=== PATIENT | female | born 1965 | race African-American/Black ===

== ENCOUNTER 2025-05-10 11:11 | Outpatient (REF) | payer OTHER, SELFPAY ==
[2025-05-10 13:02] LABS: MANUAL DIFF FLAG NO
[2025-05-10 14:17] LABS: Hematocrit 42.7 % (37.0-47.0); Hemoglobin 14.4 g/dl (12.0-16.0); Imm Gran Abs Auto 0.01 X10*3/uL (0.00-0.03); Imm Gran Pct Auto 0.2 % (0.0-0.4); Lymphocytes Absolute Auto 2.4 X10*3/uL (1.2-4.9); Mean Corpuscular HGB Conc 33.7 g/dl (31.0-35.0); Mean Corpuscular Hemoglobin 29.3 pg (27.0-33.0); Mean Corpuscular Volume 86.8 fL (80.0-98.0); NRBC Abs Auto 0.000 X10*3/uL (0.0-0.012); NRBC Pct Auto 0.0 /100WBC (0.0-0.2); Platelet Count 371 X10*3/uL (160-400); Red Blood Count 4.92 X10*6/uL (4.20-5.50); White Blood Count 5.0 X10*3/uL (4.8-10.8)
[2025-05-10 14:42] LABS: Appearance Urine Clear; Glucose Urine UA Negative (Negative); PH 5.5 (5.0-9.0); Specific Gravity - Urine 1.020 (1.005-1.025); UMIC TRIGGER UA YES
[2025-05-10 14:50] LABS: Erythrocyte Sedimentation Rate 14 MM/HR (0-20)
[2025-05-10 14:56] LABS: Alanine Aminotransferase 25 U/L (0-31); Albumin Level 4.7 g/dL (3.5-5.0); Alkaline Phosphatase 56 U/L (39-117); Anion Gap 12 (12-20); Aspartate Amino Transferase 25 U/L (5-31); Blood Urea Nitrogen 15 mg/dL (9-16); Calcium 9.7 mg/dL (8.4-10.2); Carbon Dioxide 29 mmol/L (22-29); Chloride 104 mmol/L (96-108); Estimated Glomerular Filt Rate > 60; Iron 92 mcg/dL (30-160); Magnesium 1.8 mg/dL (1.6-2.6); Percent Iron Saturation 29 % (15-50); Potassium 4.2 mmol/L (3.3-5.1); Sodium 141 mmol/L (135-145); Total Iron Binding Capacity 314 mcg/dL (228-428); Total Protein 8.2 g/dL (6.5-8.0); Unsaturated Iron Binding 222 ug/dL
[2025-05-10 15:14] LABS: Microalbum/Creatinine Ratio Ur 7.8 ug/mg cr (<30)
[2025-05-10 15:18] LABS: Vitamin B12 730 pg/mL (200-900)
== END 2025-05-10 11:12 | disposition home or self-care (01) ==
LOC: HO.LAB 11:11
PROVIDERS: PCP Internal Medicine; Visit Provider Internal Medicine
DX: I10 Essential (primary) hypertension (principal); D64.9 Anemia, unspecified; E11.69 Type 2 diabetes mellitus with other specified complication; E66.9 Obesity, unspecified; M86.9 Osteomyelitis, unspecified; R39.9 Unspecified symptoms and signs involving the genitourinary system; N39.0 Urinary tract infection, site not specified; N32.81 Overactive bladder; M48.061 Spinal stenosis, lumbar region without neurogenic claudication; Z68.31 Body mass index [BMI] 31.0-31.9, adult
CPT/HCPCS: 36415; 80053; 81001; 82043; 82570; 82607; 83036; 83540; 83735; 84443; 85025; 85652; 86140; 87040; 87086; 87088; 87186

== ENCOUNTER 2025-05-10 11:11 | Outpatient (AMB) | payer OTHER, SELFPAY ==
--- NOTE | 2025-05-10 11:12 | A.OFFPC_ITS ---
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 Accompanied by: Self / Same As Patient Allergies No Known Allergies Allergy (Verified 05/10/25 11:15) Medication List - Last Reconciled 05/10/25 by Lucero Shaw MD albuterol sulfate 90 mcg/actuation (Ventolin HFA) 2 puffs inhalation Q4H PRN blood sugar diagnostic (FreeStyle Lite Strips) As directed blood-glucose meter (FreeStyle Lite Meter kit) As directed cholecalciferol (vitamin D3) 25 mcg PO DAILY docusate sodium 100 mg PO BID PRN estradiol 0.01%(0.1mg/gram) vaginal lidocaine 5% 1 patch topical magnesium oxide 400 mg PO DAILY mirabegron ER 50 mg PO DAILY ondansetron HCl 4 mg PO Q8H PRN sitagliptin phosphate (Januvia) 100 mg PO DAILY tizanidine 2 - 4 mg PO TID PRN Tobacco use date assessed: 05/10/25 Dental Screening Dental Screen Date: 05/10/25 Did you have a dental visit in the last 12 months?: Yes Did you have a dental problem in the last 6 months where you did not have access to dental care?: No Was dental information given to patient?: Patient has dentist HPI HPI Comments History of Present Illness Details The patient is a 59-year-old female presenting to [facility]. Urinary Tract Infection and Overactive Bladder: Painful urination present. Overactive bladder diagnosed. Awaiting further evaluation of bladder lining, pending appt with [facility]. Lumbar Spinal Stenosis and Osteoarthritis: Back pain at L4-L5 with numbness and tingling. Recent MRI confirms stenosis. Interference with sleep noted. Past inflammation affects spine. Also had hospitalization for osteomyelitis several months prior. Type 2 Diabetes Mellitus and High Blood Pressure: Monitored blood glucose levels remain moderately high 100s. Januvia used for management. HTN- managed off medications Anemia- due for repeat iron studies, endorses fatigue Social History: - Diet includes tuna sandwiches, vegetab les, and moderation in bread intake. - Sleeps disturbed by pain. Review of Systems - General: Reports chills, low-grade fev er at times. - Musculoskeletal: Reports back pain, nu mbness, and tingling in legs. - Neurological: Reports numbness and tin gling in extremities. Also tingling in finger tips of right hand - Genitourinary: Reports painful urinati on, overactive bladder symptoms. Physical Exam - Vitals- Blood pressure 130/84 mmHg. - Cardiovascular- Normal heart rhythm wi th soft murmur. - Respiratory- Lungs clear, no wheezing. - Musculoskeletal- Tenderness along lumb ar paraspinals - Extremities- trace edema in both legs. Assessment and Plan 1. Urinary Tract Infection and Overactiv e Bladder - Cephalexin initiated. Bladder evaluati on scheduled. Monitor urine culture. 2. Lumbar Spinal Stenosis and Osteoarthr itis - Gabapentin prescribed. Monitor nerve s ymptoms. Assess spine inflammation. 3. Type 2 Diabetes Mellitus and High Blo od Pressure - Continue Januvia. Monitor glucose. Adj ust treatments as necessary. Follow up in 2 months Discussion Notes I discussed the presence of a urinary tract infection and provided a prescription for Cephalexin, highlighting the necessity of addressing urinary s ymptoms and ensuring appropriate antibiotic treatment following the pending results. I emphasized the importance of following up with urology to evaluate the bladder lining. For lumbar spinal stenosis and associated pain, I introduced a low-dose Gabapentin as a better option for nerve pain management compared to stronger sedatives, explaining the potential benefits and modest side effect profile when used at low doses. The conversation included recommendations to continue Januvia for diabetes while monitoring blood glucose closely, along with a significant focus on diet modification to aid in controlling elevated blood sugar levels. We addressed the challenges of managing persistent back pain and the need for a second opinion consultation regarding history of osteomyelitis. Patient Instructions - Take Cephalexin as prescribed for denny n days. - Schedule and attend the urology appoin tme for bladder examination. - Start Gabapentin 100 mg at night for b ack pain. Increase as needed after consulting. - Monitor blood sugar levels; report sig nificant changes. - Follow a balanced diet with fewer carb ohydrates. - Contact us if symptoms worsen or new s ymptoms develop. [facility] Medical History (Updated 05/10/25 @ 16:39 by Lucero Shaw MD) Urinary symptom or sign Anemia Osteomyelitis Diabetes mellitus type 2 in obese Primary hypertension Surgical History (Updated 05/08/25 @ 17:21 by Tanisha Dockery) History of hysterectomy (~2003) History of colonoscopy (~12/31/22) Social History Housing: House Patient Tobacco Use Status: Never used Tobacco e-Cigarette/Vaping Use: Never Used Current occupational status: unemployed Questionnaire AUDIT C Alcohol Use Questionnaire (AUDIT-C) 1. How often do you have a drink containing alcohol?: Never 3. How often do you have six or more drinks on one occasion?: Never Total Score: 0 Physical exam (Primary Care) Vital Signs: Last Vital Signs Temp 96.6 F L 05/10/25 11:14 Pulse 76 05/10/25 11:14 Resp 16 05/10/25 11:14 BP 130/84 05/10/25 11:14 Pulse Ox 98 05/10/25 11:14 Oxygen Delivery Method Room Air 05/10/25 11:14 BMI result Body Mass Index 31.4 Tobacco/Smoking Status: Tobacco use Status Tobacco use date assessed 05/10/25 05/10/25 11:22 Patient Tobacco Use Status Never used Tobacco 05/10/25 11:22 e-Cigarette/Vaping Use Never Used 05/10/25 11:22 Coding Level of Care Code Est Pt Level 4 (91654) Complex EM visit Add On G2211 Diagnoses Anemia, unspecified type D64.9 Anemia type: unspecified type Urinary symptom or sign R39.9 Primary hypertension I10 Diabetes mellitus type 2 in obese E11.69; E66.9 Osteomyelitis of other site, unspecified type M86.9 Osteomyelitis type: unspecified type Osteomyelitis location: other site Assessment & Plan Assessment & Plan (1) Anemia: Code(s): D64.9 - Anemia, unspecified Category: Medical Qualifiers: Anemia type: unspecified type Qualified Code(s): D64.9 - Anemia, unspec ified (2) Urinary symptom or sign: Code(s): R39.9 - Unspecified symptoms and signs involving the genitourinary system Category: Medical (3) Primary hypertension: Code(s): I10 - Essential (primary) hypertension Category: Medical (4) Diabetes mellitus type 2 in obese: Code(s): E11.69 - Type 2 diabetes mellitus with other specified complication; E66.9 - Obesity, unspecified Category: Medical (5) Osteomyelitis: Code(s): M86.9 - Osteomyelitis, unspecified Category: Medical Qualifiers: Osteomyelitis type: unspecified type Osteomyelitis location: other site Qualified Code(s): M86.9 - Osteomyelitis, unspecified Plan - Initiate Cephalexin for UTI. - Gabapentin for nerve pain. - Monitor urinary and spinal symptoms. - Continue Januvia for diabetes management. - Dietary changes for lower blood sugar. Orders: Orders Complete Blood Count Auto Diff Today D64.9 - Anemia, unspecified, E11.69 - Type 2 diabetes mellitus with other specified complication, E66.9 - Obesity, unspec ified, I10 - Essential (primary) hypertension, M86.9 - Osteomyelitis, unspecified Hemoglobin A1c Today D64.9 - Anemia, unspecified, E11.69 - Type 2 diabetes mellitus with other specified complication, E66.9 - Obesity, unspecified, I10 - Essential (primary) hypertension, M86.9 - Osteomyelitis, unspecified C Reactive Protein Today D64.9 - Anemia, unspecified, E11.69 - Type 2 diabetes mellitus with other specified complication, E66.9 - Obesity, unspecified, I10 - Essential (primary) hypertension, M86.9 - Osteomyelitis, unspecified Erythrocyte Sedimentation Rate Today D64.9 - Anemia, unspecified, E11.69 - Type 2 diabetes mellitus with other specified complication, E66.9 - Obesity, unspecified, I10 - Essential (primary) hypertension, M86.9 - Osteomyelitis, unspecified Magnesium Today D64.9 - Anemia, unspecified, I10 - Essential (primary) hypertension, M86.9 - Osteomyelitis, unspecified Comprehensive Met. Panel Today D64.9 - Anemia, unspecified, E11.69 - Type 2 diabetes mellitus with other specified complication, E66.9 - Obesity, unspecified, I10 - Essential (primary) hypertension, M86.9 - Osteomyelitis, unspecified Microalbumin, Random (w Creat) Today D64.9 - Anemia, unspecified, E11.69 - Type 2 diabetes mellitus with other specified complication, E66.9 - Obesity, unspecified, I10 - Essential (primary) hypertension, M86.9 - Osteomyelitis, unspecified TSH reflex Free T4 Today D64.9 - Anemia, unspecified, E11.69 - Type 2 diabetes mellitus with other specified complication, E66.9 - Obesity, unspecified, I10 - Essential (primary) hypertension, M86.9 - Osteomyelitis, unspecified IRON PROFILE Today D64.9 - Anemia, unspecified, E11.69 - Type 2 diabetes mellitus with other specified complication, E66.9 - Obesity, unspecified, I10 - Essential (primary) hypertension, M86.9 - Osteomyelitis, unspecified Blood Culture X2 Today M86.9 - Osteomyelitis, unspecified UA and rflx microscopic Today R39.9 - Unspecified symptoms and signs involving the genitourinary system Urine Culture Today R39.9 - Unspecified symptoms and signs involving the genitourinary system Vitamin B12 Today D64.9 - Anemia, unspecified, I10 - Essential (primary) hypertension, M86.9 - Osteomyelitis, unspecified Medications: New cephalexin 500 mg PO BID 14 caps 0RF gabapentin 100 mg PO BEDTIME 60 caps 3RF 60 days magnesium oxide 400 mg PO DAILY 30 tabs 1RF
[2025-05-10 11:14] VITALS: BP 130/84; PULSE 76; RESP 16; TEMP 35.9; O2SAT 98; BMI 31.4
== END 2025-05-10 12:08 | disposition home or self-care (01) ==
LOC: HO.HMCHD 11:11
PROVIDERS: PCP Internal Medicine; Visit Provider Internal Medicine
DX: D64.9 Anemia, unspecified (principal); R39.9 Unspecified symptoms and signs involving the genitourinary system; I10 Essential (primary) hypertension; E11.69 Type 2 diabetes mellitus with other specified complication; E66.9 Obesity, unspecified; M86.9 Osteomyelitis, unspecified

== ENCOUNTER 2025-06-10 14:18 | Outpatient (REF) | payer OTHER, SELFPAY ==
[2025-06-10 16:03] LABS: MANUAL DIFF FLAG NO
[2025-06-10 17:07] LABS: Hematocrit 39.1 % (37.0-47.0); Hemoglobin 13.2 g/dl (12.0-16.0); Imm Gran Abs Auto 0.02 X10*3/uL (0.00-0.03); Imm Gran Pct Auto 0.3 % (0.0-0.4); Lymphocytes Absolute Auto 2.3 X10*3/uL (1.2-4.9); Mean Corpuscular HGB Conc 33.8 g/dl (31.0-35.0); Mean Corpuscular Hemoglobin 29.7 pg (27.0-33.0); Mean Corpuscular Volume 88.1 fL (80.0-98.0); NRBC Abs Auto 0.000 X10*3/uL (0.0-0.012); NRBC Pct Auto 0.0 /100WBC (0.0-0.2); Platelet Count 333 X10*3/uL (160-400); Red Blood Count 4.44 X10*6/uL (4.20-5.50); White Blood Count 7.0 X10*3/uL (4.8-10.8)
[2025-06-10 17:09] LABS: INTERNATIONAL NORM RATIO 0.9 (0.9-1.1); Prothrombin Time 11.6 SEC (11.2-13.5)
[2025-06-10 17:12] LABS: Partial Thromboplastin Time 28.8 SEC (26.7-34.1)
[2025-06-10 17:38] LABS: Anion Gap 13 (12-20); Blood Urea Nitrogen 17 mg/dL (9-16); Calcium 9.3 mg/dL (8.4-10.2); Carbon Dioxide 28 mmol/L (22-29); Chloride 104 mmol/L (96-108); Estimated Glomerular Filt Rate > 60; Iron 72 mcg/dL (30-160); Magnesium 1.7 mg/dL (1.6-2.6); Percent Iron Saturation 22 % (15-50); Potassium 3.9 mmol/L (3.3-5.1); Sodium 141 mmol/L (135-145); Total Iron Binding Capacity 326 mcg/dL (228-428); Unsaturated Iron Binding 254 ug/dL
[2025-06-10 18:06] LABS: Troponin-I High Sensitivity < 2.7 ng/L (<3.5-17.0)
[2025-06-10 18:10] LABS: Erythrocyte Sedimentation Rate 19 MM/HR (0-20)
[2025-06-10 18:21] LABS: Ferritin 228 ng/mL (10-250)
== END 2025-06-10 14:19 | disposition home or self-care (01) ==
LOC: HO.LAB 14:18
PROVIDERS: PCP Internal Medicine; Visit Provider Internal Medicine
DX: I10 Essential (primary) hypertension (principal); E11.69 Type 2 diabetes mellitus with other specified complication; D69.9 Hemorrhagic condition, unspecified; M86.9 Osteomyelitis, unspecified; R07.9 Chest pain, unspecified; E66.9 Obesity, unspecified; R39.9 Unspecified symptoms and signs involving the genitourinary system; Z68.32 Body mass index [BMI] 32.0-32.9, adult
CPT/HCPCS: 36415; 80048; 82728; 83540; 83735; 84484; 85025; 85610; 85652; 85730; 86140; 87040; 96127

== ENCOUNTER 2025-06-10 14:18 | Outpatient (AMB) | payer OTHER, SELFPAY ==
--- NOTE | 2025-06-10 14:26 | MHC.PC.OV ---
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 Accompanied by: Daughter Allergies No Known Allergies Allergy (Verified 06/10/25 14:27) Medication List - Last Reconciled 06/10/25 by Lucero Shaw MD albuterol sulfate 90 mcg/actuation (Ventolin HFA) 2 puffs inhalation Q4H PRN blood sugar diagnostic (FreeStyle Lite Strips) As directed blood-glucose meter (FreeStyle Lite Meter kit) As directed cholecalciferol (vitamin D3) 25 mcg PO DAILY docusate sodium 100 mg PO BID PRN estradiol 0.01%(0.1mg/gram) vaginal gabapentin 100 mg PO BEDTIME 60 days glimepiride 1 mg PO BID 90 days lidocaine 5% 1 patch topical PRN magnesium oxide 400 mg PO DAILY mirabegron ER 50 mg PO DAILY ondansetron HCl 4 mg PO Q8H PRN sitagliptin phosphate (Januvia) 100 mg PO DAILY tizanidine 2 - 4 mg PO TID PRN Tobacco use date assessed: 05/10/25 Dental Screening Dental Screen Date: 05/10/25 HPI HPI Comments History of Present Illness Details The patient is a 59 year old female presenting to discuss easy bruising and to discuss recent urology consultation. Suspected bladder carcinoma: The patient was evaluated by urology and was found to have red spots in her bladder. A CT scan showed a very thick bladder wall. A bladder biopsy was scheduled for the of the month, for which she underwent pre-operative blood tests and an EKG. Bleeding disorder: During a pre-operative blood draw, the patient experienced prolonged bleeding from the venipuncture site that required more than 20 minutes of pressure and assistance from another staff member to control. She is not on any blood thinners or supplements known to thin the blood. She has also noted unexplained bruises in early May and an episode of hematuria. Her prior platelet counts have been normal. Chest pain: The patient reports a sensation of heaviness like bricks on top of my chest on the day of her pre-operative EKG last week. She also reveals a past episode of severe, stabbing chest pain in September, during which she self-medicated with a nitroglycerin tablet belonging to a relative which provided relief. She was advised by a home care nurse at the time to call 911 for such symptoms but she did not. Neuropathic pain/Back pain: The patient reports ongoing neuropathic burning pain in back and suprapubic pressure. Also notes numbness in her hands. She is currently taking a low dose of gabapentin (one capsule) and tizanidine, which provides insufficient pain relief. She does not experience drowsiness from the gabapentin. She also takes magnesium oxide nightly. Osteomyelitis: The patient has a history of back pain and osteomyelitis infection from 09/2024. Was seen by [facility] ID. Still reports subjective chills. Her ID doctor is no longer at [facility] so pt would like to transfer care. Anemia: The patient reports a history of severe anemia when she was younger, which required injections. Her current CBC is normal, and she is not anemic. HTN- does not require medications [facility] Medical History (Updated 06/10/25 @ 18:17 by Lucero Shaw MD) Chest pain Bleeds easily UTI (urinary tract infection) Urinary symptom or sign Anemia Osteomyelitis Diabetes mellitus type 2 in obese Primary hypertension Surgical History (Updated 05/08/25 @ 17:21 by Tanisha Dockery) History of hysterectomy (~2003) History of colonoscopy (~12/31/22) Social History Housing: House Patient Tobacco Use Status: Never used Tobacco e-Cigarette/Vaping Use: Never Used Current occupational status: unemployed Questionnaire PHQ-9 Over the last 2 weeks, how often have you been bothered by any of the following problems? 1. Little interest or pleasure in doing things: several days 2. Feeling down, depressed, or hopeless: not at all 3. Trouble falling or staying asleep, or sleeping too much: nearly every day 4. Feeling tired or having little energy: several days 5. Poor appetite or overeating: not at all 6. Feeling bad about yourself - or that you are a failure or have let yourself or your family down: not at all 7. Trouble concentrating on things, such as reading the newspaper or watching television: not at all 8. Moving or speaking so slowly that other people could have noticed. Or the opposite - being so fidgety or restless that you have been moving around a lot more than usual: not at all 9. Thoughts that you would be better off or of hurting yourself in some way: not at all Total score: 5 Depression Screening Interpretation: Positive Depression Screening Done: Yes 74070 - PHQ-9 Billing: Yes Source: Developed by Drs. Gonzalo Butcher, Radha Pickens, Broderick Larios and colleagues, with an educational jasvir from [employer]. AUDIT C Alcohol Use Questionnaire (AUDIT-C) 1. How often do you have a drink containing alcohol?: Never 3. How often do you have six or more drinks on one occasion?: Never Total Score: 0 Review of Systems Narrative Review of Systems - Constitutional: Reports chills two nights ago, night fevers in the past, and dizziness. - Cardiovascular: Reports a sensation of heaviness on the chest described as bricks on top of my chest last week. She also reports a previous episode of severe, stabbing chest pain in September that was relieved by nitroglycerin. Denies palpitations. - Genitourinary: Reports one recent episode of hematuria. Reports urinary urgency and incontinence. Denies dysuria or urinary frequency. - Musculoskeletal: Reports chronic back pain. Reports pain that makes it difficult to bend over. Denies neck pain. - Hematologic/Lymphatic: per hpi - Neurological: Reports numbness and tingling in her hands. Denies drowsiness from her medication. - Psychiatric: Reports feeling anxious and having trouble sleeping. Physical exam (Primary Care) Vital Signs: Last Vital Signs Temp 97.1 F 06/10/25 14:27 Pulse 84 06/10/25 14:27 Resp 16 06/10/25 14:27 BP 120/76 06/10/25 14:27 Pulse Ox 97 06/10/25 14:27 Oxygen Delivery Method Room Air 06/10/25 14:27 BMI result Body Mass Index 32.5 Tobacco/Smoking Status: Tobacco use Status Tobacco use date assessed 05/10/25 06/10/25 14:33 Patient Tobacco Use Status Never used Tobacco 06/10/25 14:33 e-Cigarette/Vaping Use Never Used 06/10/25 14:33 PHQ-9: PHQ-9 Score PHQ-9: Total score 5 06/10/25 14:33 Depression Screening Interpretation: Positive Narrative Physical Exam - Pulmonary: Lungs are clear to auscultation bilaterally. - Cardiovascular: Normal heart sounds with a soft murmur noted on auscultation. - Abdomen: Non-tender to palpation. Normal bowel sounds present. Coding Level of Care Code Est Pt Level 4 (16430) Complex visit Add On G2211 Diagnoses Chest pain, unspecified type R07.9 Chest pain type: unspecified Osteomyelitis of other site, unspecified type M86.9 Osteomyelitis location: other site Osteomyelitis type: unspecified type Primary hypertension I10 Urinary symptom or sign R39.9 Additional Codes PHQ-9 - 48594 - PHQ-9 Billing: Yes ([id number]) Assessment & Plan Assessment & Plan (1) Chest pain: Code(s): R07.9 - Chest pain, unspecified Category: Medical Qualifiers: Chest pain type: unspecified Qualified Code(s): R07.9 - Chest pain, unspecified (2) Osteomyelitis: Code(s): M86.9 - Osteomyelitis, unspecified Category: Medical Qualifiers: Osteomyelitis location: other site Osteomyelitis type: unspecified type Qualified Code(s): M86.9 - Osteomyelitis, unspecified (3) Primary hypertension: Code(s): I10 - Essential (primary) hypertension Category: Medical (4) Urinary symptom or sign: Code(s): R39.9 - Unspecified symptoms and signs involving the genitourinary system Category: Medical Plan Assessment and Plan 1. Chest Pain - The patient reports recent chest pressure and a past episode of severe, stabbing chest pain in September that was relieved by nitroglycerin. - Given her history of diabetes, this is highly concerning for an underlying cardiac issue. - The patient is not cleared for her scheduled bladder biopsy. - - Plan: Will order a stat stress test to evaluate for cardiac ischemia. - The bladder biopsy will be postponed until the cardiac workup is complete. - The patient was strongly advised to call 911 for any future episodes of chest pain. 2. Suspected Bladder Carcinoma - will obtain urology report - A biopsy is planned but will be delayed pending cardiac clearance. - - Plan: Patient to follow up with urology after cardiac evaluation. - The biopsy is postponed. 3. Bleeding Diathesis/Prolonged Bleeding - The patient experienced significant, prolonged bleeding after a routine blood draw, has a history of easy bruising, and watery-appearing blood. - She is not on any anticoagulants. - The etiology is unclear. - - Plan: Will order labs today to investigate a possible bleeding disorder, PT/INR, CBC. - Will also check a magnesium level. - Blood cultures will be added due to her recent report of chills. 4. Chronic Neuropathic Pain - The patient continues to have significant neuropathic pain - - Plan: Titrate gabapentin up to 2 capsules at bedtime this week, with the option to increase to 3 if needed and tolerated. - She can continue tizanidine but take it at dinnertime, not at the same time as gabapentin. - This may also help with her reported anxiety and insomnia. 5. History of Osteomyelitis - Given her ongoing symptoms and the fact her ID specialist is leaving, will refer to ID - - Plan: Will recheck inflammatory markers (ESR, CRP). 6. Follow-up - The patient has a follow-up appointment scheduled for next week - This may be rescheduled pending the results of the diagnostic workup. - - Plan: Maintain current follow-up appointment, but may move it after lab and stress test results are available. Plan - Laboratory tests will be performed today to evaluate for bleeding disorders, including an INR, CBC, - Inflammatory markers, including ESR and CRP, will be checked to assess for ongoing inflammation. - Blood cultures will be drawn due to the patient's recent report of chills. - A magnesium level will be checked. - An order for a stat cardiac stress test will be placed to evaluate her chest pain symptoms. - The patient is not cleared for her upcoming bladder biopsy until the cardiac workup is completed. - Increase gabapentin dose to two capsules at bedtime for one week, may increase to three capsules if needed. - Tizanidine can be taken at dinnertime, but not at the same time as gabapentin. - A referral to Infectious Disease will be initiated to establish care with a new provider, as her previous one has left the practice, and to re-evaluate her history for surgical clearance. Patient Instructions - Go to the lab today to have your blood drawn for the tests we discussed. - Do not proceed with your bladder biopsy scheduled for the . It is not safe for you to have surgery until we check your heart. We will put in an order for a heart stress test for you. - For any chest pain, pressure, heaviness, or stabbing feeling, you must call 911 immediately. Do not try to figure it out on your own. - Do not take any medications, like nitroglycerin, that are not prescribed for you. This can be very dangerous. - Increase your gabapentin to two capsules at bedtime. If your pain does not improve, you may increase to three capsules. - If you take tizanidine, take it at dinnertime, not at the same time as the gabapentin. - Continue to drink sips of water throughout the day, aiming for at least 64 ounces in total. Orders: Orders C Reactive Protein Today D69.9 - Hemorrhagic condition, unspecified, M86.9 - Osteomyelitis, unspecified Prothrombin Time INR Today D69.9 - Hemorrhagic condition, unspecified, M86.9 - Osteomyelitis, unspecified IRON PROFILE Today D69.9 - Hemorrhagic condition, unspecified Ferritin Today D69.9 - Hemorrhagic condition, unspecified NM cardiolite stress test Today R07.9 - Chest pain, unspecified Troponin-I High Sensitivity Today R07.9 - Chest pain, unspecified Blood Culture X2 Today M86.9 - Osteomyelitis, unspecified Erythrocyte Sedimentation Rate Today D69.9 - Hemorrhagic condition, unspecified, M86.9 - Osteomyelitis, unspecified Complete Blood Count Auto Diff Today D69.9 - Hemorrhagic condition, unspecified, M86.9 - Osteomyelitis, unspecified Partial Thromboplastin Time Today D69.9 - Hemorrhagic condition, unspecified, M86.9 - Osteomyelitis, unspecified Magnesium Today E11.69 - Type 2 diabetes mellitus with other specified complication, E66.9 - Obesity, unspecified, I10 - Essential (primary) hypertension Basic Metabolic Panel Today E11.69 - Type 2 diabetes mellitus with other specified complication, E66.9 - Obesity, unspecified, I10 - Essential (primary) hypertension CA stress test Today R07.9 - Chest pain, unspecified Referrals Infectious Disease Referral M86.9 - Osteomyelitis, unspecified
[2025-06-10 14:27] VITALS: BP 120/76; PULSE 84; RESP 16; TEMP 36.2; O2SAT 97; BMI 32.5
--- OUTSIDE RECORDS SUMMARY | 2025-06-10 23:14 | XMS_ITS | Clinical Summary ---
Author Organization [facility] Address [address] [place] [address] Phone Care Team Providers Care Interventional Technologist Name Role Phone Lucero Shaw MD Primary Care Provider [phone] Allergies No known active allergies Social History Tobacco Use Types Packs/Day Years Used Date Smoking Tobacco: Never Smokeless Tobacco: Never Tobacco Cessation:Counseling Given: Not Answered Comments Unknown Sex and Gender Information Value Date Recorded Sex Assigned at Not on file Legal Sex Female 9:03 AM EST Gender Identity Not on file Sexual Orientation Not on file Last Filed Vital Signs Vital Sign Reading Time Taken Comments Blood Pressure 117/84 01/06/2025 12:45 AM EDT Pulse 78 01/06/2025 12:45 AM EDT Temperature 36.9 C (98.5 F) 01/06/2025 12:45 AM EDT Respiratory Rate 17 01/06/2025 12:45 AM EDT Oxygen Saturation 97% 01/06/2025 12:45 AM EDT Inhaled Oxygen Concentration - - Weight 81.2 kg (179 lb) 01/05/2025 4:43 PM EDT Height 160 cm (5' 3 ) 01/05/2025 4:43 PM EDT Body Mass Index 31.71 01/05/2025 4:43 PM EDT Plan of Treatment Health Maintenance Due Date Last Done Comments Breast Cancer Screening 1965 Colorectal Cancer Screening: Colonoscopy 1965 Diabetes: Annual Foot Exam 10/28/1977 Diabetes: Annual Retina Eye Exam 10/28/1977 DTaP,Tdap,and Td Vaccines (1 - Tdap) 10/28/1986 Hepatitis B Vaccines (1 of 3 - 19+ 3-dose series) 10/28/1986 Cervical Cancer Screening: P ap Smear 10/28/1988 Pneumococcal Vaccine: 50+ Ye ars (1 of 1 - PCV) 10/28/2017 Zoster Vaccines (1 of 2) 10/28/2017 Depression Screening 07/04/2024 Cholesterol Screening (Lipid Panel) 01/05/2025 Diabetes: Annual Urine Albumin-Creatinine Ratio (uACR) 01/05/2025 Diabetes: Blood Sugar Contro l Test (HGBA1C) 01/05/2025 HIV Screening 01/05/2025 Hepatitis C Screening 01/05/2025 Social Influencers of Health Screening 01/05/2025 COVID-19 Vaccine (1 - 2024-2 6 season) 2025 Influenza Vaccine (#1) 2025 Diabetes: Annual GFR (Glomer ular Filtration Rate) 01/05/2026 01/05/2025 Hypertension/CHF/CAD Annual BMP Blood Test 01/05/2026 01/05/2025 RSV Immunization Adult Patie nts (1 - 1-dose 75+ series) 10/28/2042 HIB Vaccines Aged Out No longer eligi ble based on patient's age to complete this topic HPV Vaccines Aged Out No longer eligi ble based on patient's age to complete this topic Hepatitis A Vaccines Aged Out No long er eligible based on patient's age to complete this topic IPV Vaccines Aged Out No longer eligi ble based on patient's age to complete this topic MMR Vaccines Aged Out No longer eligi ble based on patient's age to complete this topic Meningococcal ACWY Vaccine Aged Out N o longer eligible based on patient's age to complete this topic Meningococcal B Vaccine Aged Out No l onger eligible based on patient's age to complete this topic RSV Immunization Patients Un elisabeth 20 months Aged Out No longer eligible b ased on patient's age to complete this topic Varicella Vaccines Aged Out No longer eligible based on patient's age to complete this topic Procedures Procedure Name Priority Date/Time Associated Diagnosis Comments BASIC METABOLIC PANEL STAT 01/05/2025 5:34 PM EDT from Last 3 Months or Most Recently Relevant to Health Maintenance Results * (ABNORMAL) Basic metabolic panel (01/05/2025 5:34 PM EDT) Sodium 136 133 - 145 mmol/L LAB CHEMISTRY METHOD 01/05/2025 6:32 PM T [facility] Potassium 4.5 3.5 - 5.5 mmol/L LAB CHEMISTRY METHOD 01/05/2025 6:32 PM T [facility] Chloride 103 96 - 110 mmol/L LAB CHEMISTRY METHOD 01/05/2025 6:32 PM [facility] CO2 28 21 - 32 mmol/L LAB CHEMISTRY METHOD 01/05/2025 6:32 PM [facility] Anion Gap 5 3 - 11 LAB CHEMISTRY METHOD 01/05/2025 6:32 PM [facility] Glucose 176(H) 70 - 100 mg/dL LAB CHEMISTRY METHOD 01/05/2025 6:32 PM [facility] BUN 19 5 - 25 mg/dL LAB CHEMISTRY METHOD 01/05/2025 6:32 PM [facility] Creatinine 0.98 0.50 - 1.10 mg/dL LAB CHEMISTRY METHOD 01/05/2025 6:32 PM [facility] eGFR 67 >=60 mL/min/1. 73m2 LAB CHEMISTRY METHOD 01/05/2025 6:32 PM [facility] Comment:Calculation based on the Chronic Kidney Disease Epidemiology Collaboration (CKD-EPI) equation refit without adjustment for race. BUN/Creatinine Ratio 19.4 LAB CHEMISTRY METHOD 01/05/2025 6:32 PM [facility] Calcium 9.5 8.5 - 10.5 mg/dL LAB CHEMISTRY METHOD 01/05/2025 6:32 PM [facility] Blood Venous blood specimen / Unknown Venipuncture / Unknown 01/05/2025 5:34 PM EDT 01/05/2025 6:12 PM EDT us Melvin Gil MD LAB BLOOD ORDERABLES Final Resu lt [facility] [address] [place] [address], from Last 3 Months or Most Recently Relevant to Health Maintenance Insurance [facility] [employer]ICA[employer] Care Teams Interventional Technologist Relationship Specialty Start Date End Date Lucero Shaw MD [id number] [place] [address] PCP - General Internal Medicine 01/05/25
== END 2025-06-10 15:18 | disposition home or self-care (01) ==
LOC: HO.HMCHD 14:18
PROVIDERS: PCP Internal Medicine; Visit Provider Internal Medicine
DX: R07.9 Chest pain, unspecified (principal); M86.9 Osteomyelitis, unspecified; I10 Essential (primary) hypertension; R39.9 Unspecified symptoms and signs involving the genitourinary system

== ENCOUNTER → 2025-06-12 09:11 | Outpatient (REF) | payer OTHER, SELFPAY ==
--- NOTE | 2025-06-12 09:14 | CA_ITS ---
Acquisition Time: 2025-06-12 09:20:56 Total Exercise Time: 00:05:00 Test Indications: CP Medications: SEE H&P Protocol: MAYANK Max HR: 150 BPM 92% of Pred: 163 BPM Max BP: 160/80 mmHG Max Work Load: 6.0 METS Exercise stress test with exercise 5 mins of Mayank Protocol at reduced speed of 2.2mph, achieving 90% MPHR, with reports of 7/10 left sided chest heaviness and SOB, without any arrythmias, with normotensive response to exercise. Without any EKG changes meeting criteria for ischemia. In recovery, chest heaviness slowly improved and breathing returned to baseline. Nuclear images pending. Test reviewed with Dr. Urias. Referred By: Lucero Shaw Electronically Signed By: Jonathan Georges
== END ==
LOC: HO.CARD 09:11
PROVIDERS: PCP Internal Medicine; Visit Provider Internal Medicine
DX: R07.89 Other chest pain (principal); E11.9 Type 2 diabetes mellitus without complications
CPT/HCPCS: 78452; 93017; A9500

== ENCOUNTER → 2025-06-12 09:14 | Outpatient (BNV) | payer OTHER, SELFPAY | PROVIDERS: PCP Internal Medicine | DX: R07.89 Other chest pain (principal); R06.02 Shortness of breath | CPT/HCPCS: 78452; 93016; 93018 ==

== ENCOUNTER 2025-06-17 10:28 | Outpatient (AMB) | payer OTHER, SELFPAY ==
--- NOTE | 2025-06-17 10:35 | MHC.PC.OV ---
Vital Signs 06/17/25 10:36 06/17/25 11:05 Height 5 ft 3 in Weight 181 lb 2 oz BMI 32.1 BP 140/90 H 130/70 Blood Pressure Location Lt brachial Lt brachial Position Sitting Respiration 16 Pulse 76 Pulse Source Pulse Oximeter Temp 96.8 F Temp Source Temporal Artery Scan Pulse Oximetry (%) 97 Oxygen Delivery Method Room Air Intake Visit Reasons: spinal stenosis Powder Guard Required: No Accompanied by: Daughter Allergies No Known Allergies Allergy (Verified 06/17/25 10:35) Medication List - Last Reconciled 06/17/25 by Lucero Shaw MD albuterol sulfate 90 mcg/actuation (Ventolin HFA) 2 puffs inhalation Q4H PRN blood sugar diagnostic (FreeStyle Lite Strips) As directed blood-glucose meter (FreeStyle Lite Meter kit) As directed cholecalciferol (vitamin D3) 25 mcg PO DAILY docusate sodium 100 mg PO BID PRN estradiol 0.01%(0.1mg/gram) vaginal gabapentin 100 mg PO BEDTIME 60 days glimepiride 1 mg PO BID 90 days lidocaine 5% 1 patch topical PRN magnesium oxide 400 mg PO DAILY mirabegron ER 50 mg PO DAILY ondansetron HCl 4 mg PO Q8H PRN sitagliptin phosphate (Januvia) 100 mg PO DAILY tizanidine 2 - 4 mg PO TID PRN Tobacco use date assessed: 05/10/25 Dental Screening Dental Screen Date: 05/10/25 HPI HPI Comments History of Present Illness Details The patient is a 59 year old female presenting with follow-up for stress test results and ongoing chest pain. Atypical chest pain: The patient reports experiencing chest pain during her recent stress test, which subsided with rest. She continues to have episodes of chest heaviness and pressure, with the most recent episode occurring last night while she was resting. Insomnia: The patient reports difficulty sleeping and is often awake at 2 or 3 in the morning. She has tried an eevb-ubp-heuottb sleep aid containing diphenhydramine 25 mg, which was given to her recently. She has also tried melatonin without success. Bladder pain: The patient reports experiencing pain in her bladder and vaginal area. She clarifies it is not associated with urination. She has a history of a urinary tract infection that presented with pain rather than dysuria. Plan for cystoscopy with [facility] once cardiac workup is completed. Neuropathic pain: The patient is taking gabapentin and tizanidine for lower back pain. She takes two gabapentin 100mg pills. She takes tizanidine at dinner time because it causes drowsiness; she is unable to take it during the day. HTN- repeat bp in normal range Family History: - Patient reports a strong family history of heart disease. - A family member at age 39 from a heart attack. - Multiple siblings have had two heart attacks each. - Father had two heart attacks at age 35 while driving. - Mother has atrial fibrillation (AFib) and had a stroke. [facility] Medical History (Updated 06/17/25 @ 17:28 by Lucero Shaw MD) Lumbar pain Murmur Preop cardiovascular exam Chest pain Bleeds easily UTI (urinary tract infection) Urinary symptom or sign Anemia Osteomyelitis Diabetes mellitus type 2 in obese Primary hypertension Surgical History (Updated 05/08/25 @ 17:21 by Tanisha Dockery) History of hysterectomy (~2003) History of colonoscopy (~12/31/22) Social History Housing: House Patient Tobacco Use Status: Never used Tobacco e-Cigarette/Vaping Use: Never Used Current occupational status: unemployed Questionnaire AUDIT C Alcohol Use Questionnaire (AUDIT-C) 1. How often do you have a drink containing alcohol?: Never 3. How often do you have six or more drinks on one occasion?: Never Total Score: 0 Review of Systems Narrative Review of Systems - Cardiovascular: Reports chest pain and pressure, with the most recent episode last night. - Respiratory: per hpi - Genitourinary: Reports pain in the bladder and vaginal area, not associated with urination. - Neurological: Reports insomnia, often staying awake until 2 or 3 a.m. Denies pain on abdominal palpation. Physical exam (Primary Care) Vital Signs: Last Vital Signs Temp 96.8 F 06/17/25 10:36 Pulse 76 06/17/25 10:36 Resp 16 06/17/25 10:36 BP 130/70 06/17/25 11:05 Pulse Ox 97 06/17/25 10:36 Oxygen Delivery Method Room Air 06/17/25 10:36 BMI result Body Mass Index 32.1 Tobacco/Smoking Status: Tobacco use Status Tobacco use date assessed 05/10/25 06/17/25 10:37 Patient Tobacco Use Status Never used Tobacco 06/17/25 10:37 e-Cigarette/Vaping Use Never Used 06/17/25 10:37 Narrative Physical Exam - Vitals: Repeat blood pressure was 130/70 mmHg. - Cardiovascular: Regular rate and rhythm. A soft murmur was auscultated. - Pulmonary: Lungs are clear to auscultation. - Abdomen: Non-tender to palpation. Normoactive bowel sounds - Extremities: no swelling noted Coding Level of Care Code Est Pt Level 4 (07755) Add On Problem Visit Only Diagnoses Chest pain, unspecified type R07.9 Chest pain type: unspecified Primary hypertension I10 Lumbar pain M54.50 Assessment & Plan Assessment & Plan (1) Chest pain: Code(s): R07.9 - Chest pain, unspecified Category: Medical Qualifiers: Chest pain type: unspecified Qualified Code(s): R07.9 - Chest pain, unspecified (2) Primary hypertension: Code(s): I10 - Essential (primary) hypertension Category: Medical (3) Lumbar pain: Code(s): M54.50 - Low back pain, unspecified Category: Medical Plan Assessment and Plan 1. Recurrent chest pain - The patient continues to experience chest pain - Given her persistent symptoms and very strong family history of premature cardiac disease, further evaluation is warranted. - Will order an echocardiogram and an urgent cardiology consultation. - Patient advised to start aspirin 81 mg daily. - She was also instructed to contact her urologist to reschedule her upcoming cystoscopy until the cardiac workup is complete. 2. Insomnia - The patient reports significant difficulty sleeping. - She was advised to stop taking the zmie-ojm-dbkzpeo sleep aid containing diphenhydramine due to potential side effects like palpitations. - The gabapentin dose increase may also help with sedation. 3. Bladder pain - The patient reports non-dysuric bladder and vaginal pain, which is concerning for a possible urinary tract infection, given her history of atypical presentations. - Will order a repeat urinalysis and urine culture today to rule out infection. 4. Neuropathic pain - The patient's pain is not fully controlled on her current regimen. - Will increase gabapentin to three pills at dinner. - Tizanidine will be shifted to bedtime to help with sleep and manage its sedative side effects. 5. Heart murmur - A soft murmur was noted on exam. - The planned echocardiogram will further evaluate the heart valves and function. 6. Follow-up - referral to cardiology - A follow-up visit is scheduled in approximately three weeks to review the results of the pending workup. Plan - Start aspirin 81 mg daily for chest pain. - Increase gabapentin to three tablets with dinner. - Take tizanidine at bedtime. - Discontinue hydi-nyv-hnrsxbm sleep aid (diphenhydramine). - Order an echocardiogram. - Place an urgent referral to cardiology. - Order a repeat urinalysis and urine culture. - Instruct patient to reschedule her upcoming cystoscopy until after the cardiology workup is complete. - Schedule a follow-up appointment in approximately three weeks, after the cardiology consultation. Patient Instructions - Please call your urologist's office today to reschedule your cystoscopy procedure. Inform them that you are having chest pain that is currently being evaluated by a group insurance specialist (flue lining dipper). It is not safe to have the procedure until your heart has been checked. - Start taking one baby aspirin (81 mg) every day. - Increase your gabapentin to 3 pills, taken together with dinner. - Take your tizanidine (muscle relaxer) at bedtime instead of with dinner. Orders: Orders Urine Culture Today N39.0 - Urinary tract infection, site not specified UA and rflx microscopic Today N39.0 - Urinary tract infection, site not specified Troponin-I High Sensitivity Today R07.9 - Chest pain, unspecified CA echo transthoracic complete Today R01.1 - Cardiac murmur, unspecified, R07.9 - Chest pain, unspecified, Z01.810 - Encounter for preprocedural cardiovascular examination Referrals Cardiology Referral R07.9 - Chest pain, unspecified Medications: New aspirin 81 mg PO DAILY 90 tabs 3RF tizanidine 2 - 4 mg (1 - 2 x 2 mg) PO TID PRN 60 tabs 1RF moderate pain Changed From gabapentin 100 mg PO BEDTIME 60 days 60 caps 3RF To gabapentin 300 mg (3 x 100 mg) PO BEDTIME 180 caps 3RF 60 days
[2025-06-17 10:36] VITALS: BP 140/90; PULSE 76; RESP 16; TEMP 36; O2SAT 97; BMI 32.1
[2025-06-17 11:05] VITALS: BP 130/70
== END 2025-06-17 11:29 | disposition home or self-care (01) ==
LOC: HO.HMCHD 10:29
PROVIDERS: PCP Internal Medicine; Visit Provider Internal Medicine
DX: R07.9 Chest pain, unspecified (principal); I10 Essential (primary) hypertension; M54.50 Low back pain, unspecified

== ENCOUNTER 2025-06-17 10:28 | Outpatient (REF) | payer OTHER, SELFPAY ==
[2025-06-17 12:53] LABS: Appearance Urine Cloudy; Glucose Urine UA Negative (Negative); PH 6.5 (5.0-9.0); Specific Gravity - Urine 1.015 (1.005-1.025)
[2025-06-17 13:07] LABS: Troponin-I High Sensitivity < 2.7 ng/L (<3.5-17.0)
== END 2025-06-17 10:29 | disposition home or self-care (01) ==
LOC: HO.LAB 10:28
PROVIDERS: PCP Internal Medicine; Visit Provider Internal Medicine
DX: R07.89 Other chest pain (principal); N39.0 Urinary tract infection, site not specified; R39.9 Unspecified symptoms and signs involving the genitourinary system; I10 Essential (primary) hypertension; M54.50 Low back pain, unspecified
CPT/HCPCS: 36415; 81003; 84484; 87086